=== PATIENT | female | born 1955 | race Caucasian/White ===

== ENCOUNTER 2016-11-10 15:41 | Emergency (ER) | payer SELFPAY ==
[~2016-11-10] VITALS: Ht 167.6 cm; Wt 48.0 kg
[~2016-11-10 15:41] MED LIST: ACET325S8 PO; ALLE25CA5 PO; APIX5TAB PO; ATEN-102 PO; ATOR20TA PO; BIOT5000 PO; CYCL1PAK PO; LATA.005%O OU; MELA5TAB8 PO; METH10TA PO; MOBI15TA PO; MULTCAP2 PO; ROPI0.25 PO; SPIR25TA PO; TOPI25TA2 PO; VITA100T65 PO; VITATAB25 PO; XANA0.5T PO
[2016-11-10 15:45] VITALS: BP 165/65; PULSE 78; RESP 15; TEMP 98.2; O2SAT 98
--- NOTE | 2016-11-10 15:53 | PD ---
Physical Exam Time Seen by Provider: 15:50 Narrative 61yo F sent by MD for INR 8.3. Says MD left it up to her to come in for evaluation. Stopped Warfarin 2 days ago. Requesting carotid US also. 100% blockage on R and 50-70% on L. Patient stable. Patient seen in triage. Awaiting bed placement. Data Data Last Documented VS Vital Signs Date Time Temp Pulse Resp B/P Pulse Ox O2 Delivery O2 Flow Rate FiO2 11/10/16 15:45 98.2 78 15 165/65 98 MDM Supervised Visit with CHARLY: Charleen Fatima Nov 10, 2016 15:53
[2016-11-10 18:29] LABS: AUTOMATED NEUTROPHIL # 3.5 TH/MM3 (1.8-7.7); BASOPHIL % 0.6 % (0.0-2.0); EOSINOPHIL # 0.2 TH/MM3 (0-0.4); EOSINOPHIL % 2.7 % (0.0-4.0); HEMATOCRIT 34.6 % (35.0-46.0); HEMO FLAGS DIFF FINAL; LYMPH % 31.7 % (9.0-44.0); MEAN CELL VOLUME 89.4 FL (80.0-100.0); MEAN CORPUSCULAR HEMOGLOBIN 29.3 PG (27.0-34.0); MEAN CORPUSCULAR HGB CONC 32.8 % (32.0-36.0); MONO % 10.5 % (0.0-8.0); NEUT % 54.5 % (16.0-70.0); PLATELET COUNT 183 TH/MM3 (150-450); RED BLOOD COUNT 3.88 MIL/MM3 (4.00-5.30); RED CELL DISTRIBUTION WIDTH 13.5 % (11.6-17.2); WHITE BLOOD COUNT 6.4 TH/MM3 (4.0-11.0)
[2016-11-10 18:40] LABS: APTT (PATIENT) 45.1 SEC (24.3-30.1); INTERNATIONAL NORMALIZED RATIO 2.9 RATIO; PROTHROMBIN TIME - PATIENT 33.6 SEC (9.8-11.6)
[2016-11-10 18:48] LABS: BICARBONATE 34.4 MEQ/L (21.0-32.0); POTASSIUM 4.1 MEQ/L (3.5-5.1)
--- NOTE | 2016-11-10 19:17 | PD ---
HPI Chief Complaint: Abnormal Results Time Seen by Provider: 19:08 Travel History International Travel<30 days: No Contact w/Intl Traveler<30days: No Traveled to known affect area: No History of Present Illness HPI 61-year-old female that presents to the ED for evaluation of abnormal lab results. Per patient she is currently on Coumadin secondary to atrial fibrillation and 100% clogging of the right carotid. She recently switched to a new doctor about a month ago and she she was switched from Eliquis to Coumadin secondary to not able to afford the medication. She states that she's been doing good with the Coumadin but she is noted that the level was checked about 3 days ago and was high and she was told to withhold her Coumadin. Patient had it rechecked yesterday and went to her appointment with her doctor today and was told that her level actually increase even with withholding the Coumadin for 3 days. Per patient her level is 8.3. Patient comes here with the blood work that shows this. Initially her blood work on November 07 was 7.9. She states that she's been compliant with her diet. Per patient she's been vegetarian. She denies any other medical issues. She states that she does have some bruising on the right and left arm that comes and goes and she does note that she does bruise easier. She denies any pain of any kind. No chest pain or shortness of breath. No bleeding from the rectum or the urine. No trauma or injury. PFSH Past Medical History Hx Anticoagulant Therapy: Yes (Eliquis) Arthritis: Yes Atrial Fibrillation: Yes Anxiety: Yes Cancer: No Cardiovascular Problems: Yes (right carotid stenosis) Chemotherapy: No Cerebrovascular Accident: No Diabetes: No Diminished Hearing: No Genitourinary: No Headaches: Yes Hepatitis: Yes Hypertension: Yes Immune Disorder: No Psychiatric: Yes Reproductive: Yes (HYSTERECTOMY ) Respiratory: No Immunizations Current: Yes ?: Not Menopausal: Yes Past Surgical History Abdominal Surgery: Yes (APPENDECTOMY ) Appendectomy: Yes Section: Yes (x1) Ear Surgery: Yes (left eardrum rebuilt) Gynecologic Surgery: Yes (CYST REMOVED, C SECTION ) Hysterectomy: Yes (2001) Oral Surgery: Yes (TONSILLECTOMY) Tonsillectomy: Yes Social History Alcohol Use: No Tobacco Use: No Substance Use: No Allergies-Medications (Allergen,Severity, Reaction): Coded Allergies: Egg Allergy (Verified Allergy, Severe, 11/10/16) Sulfa (Verified Allergy, Severe, 11/10/16) Reported Meds & Prescriptions Reported Meds & Active Scripts Active Atenolol 50 Mg Tab 50 Mg PO BID Spironolactone 25 Mg Tab 25 Mg PO DAILY Eliquis (Apixaban) 5 Mg Tab 5 Mg PO BID Atorvastatin 20 mg tab (Atorvastatin Calcium) 20 Mg Tab 20 Mg PO HS Reported Multi For Her 50+ (Amino Acids/Minerals/Vitamins) Cap 1 Cap PO DAILY Acetaminophen 325 Mg Tab 500 Mg PO DAILY Allergy Medication (Diphenhydramine HCl) 25 Mg Cap 25 Mg PO HS PRN Biotin 5 000 Tab 1,000 Mcg PO DAILY Vitamin E 100 Unit Tab 100 Unit PO DAILY Melatonin (Melatonin-Pyridoxine) 1 Tab Tab 1 Tab PO HS 10mg tab once a night Vitamin D-1000 (Cholecalciferol) 1,000 Unit Tab 2,000 Unit PO DAILY Xalatan (Latanoprost) 0.005 % Soln 1 Drop OU HS Cyclobenzaprine Hcl (Cyclobenzaprine HCl) 10 Mg Tab 5 Mg PO DAILY Topiramate 25 Mg Tab 25 Mg PO BID Xanax 0.5 mg (Alprazolam) Alprazolam 0.5 mg Tab 1 Tab PO TID PRN Mobic (Meloxicam) 15 Mg Tab 15 Mg PO DAILY Methadone HCl (Methadone Hcl) 10 Mg Tab 10 Mg PO TID Ropinirole HCl (Ropinirole Hydrochloride) 0.25 Mg Tab 0.25 Mg PO TID PRN Review of Systems Except as stated in HPI: all other systems reviewed are Neg Physical Exam Narrative GENERAL: SKIN: Warm and dry. HEAD: Atraumatic. Normocephalic. EYES: Pupils equal and round. No scleral icterus. No injection or drainage. ENT: No nasal bleeding or discharge. Mucous membranes pink and moist. Tongue is midline. No uvula deviation. NECK: Trachea midline. No JVD. CARDIOVASCULAR: Regular rate and rhythm. No murmurs, S3, S4. RESPIRATORY: No accessory muscle use. Clear to auscultation. Breath sounds equal bilaterally. GASTROINTESTINAL: Abdomen soft, non-tender, nondistended. Hepatic and splenic margins not palpable. MUSCULOSKELETAL: Extremities without clubbing, cyanosis, or edema. No obvious deformities. Full range of motion of the upper and lower extremities bilaterally. 2+ pulses bilaterally. Patient does have some bruising on the arms and legs around the fingers especially in the right side. NEUROLOGICAL: Awake and alert. No obvious cranial nerve deficits. Motor grossly within normal limits. Five out of 5 muscle strength in the arms and legs. Normal speech. PSYCHIATRIC: Appropriate mood and affect; insight and judgment normal. Data Data Last Documented VS Vital Signs Date Time Temp Pulse Resp B/P Pulse Ox O2 Delivery O2 Flow Rate FiO2 11/10/16 18:11 Room Air 11/10/16 15:45 98.2 78 15 165/65 98 Orders Complete Blood Count With Diff (11/10/16 17:45) Basic Metabolic Panel (Bmp) (11/10/16 17:45) Prothrombin Time / Inr (Pt) (11/10/16 17:45) Act Partial Throm Time (Ptt) (11/10/16 17:45) Labs Laboratory Tests Test 11/10/16 18:00 White Blood Count 6.4 TH/MM3 Red Blood Count 3.88 MIL/MM3 Hemoglobin 11.4 GM/DL Hematocrit 34.6 % Mean Corpuscular Volume 89.4 FL Mean Corpuscular Hemoglobin 29.3 PG Mean Corpuscular Hemoglobin 32.8 % Concent Red Cell Distribution Width 13.5 % Platelet Count 183 TH/MM3 Mean Platelet Volume 9.6 FL Neutrophils (%) (Auto) 54.5 % Lymphocytes (%) (Auto) 31.7 % Monocytes (%) (Auto) 10.5 % Eosinophils (%) (Auto) 2.7 % Basophils (%) (Auto) 0.6 % Neutrophils # (Auto) 3.5 TH/MM3 Lymphocytes # (Auto) 2.0 TH/MM3 Monocytes # (Auto) 0.7 TH/MM3 Eosinophils # (Auto) 0.2 TH/MM3 Basophils # (Auto) 0.0 TH/MM3 CBC Comment DIFF FINAL Differential Comment Prothrombin Time 33.6 SEC Prothromb Time International 2.9 RATIO Ratio Activated Partial 45.1 SEC Thromboplast Time Sodium Level 139 MEQ/L Potassium Level 4.1 MEQ/L Chloride Level 100 MEQ/L Carbon Dioxide Level 34.4 MEQ/L Anion Gap 5 MEQ/L Blood Urea Nitrogen 22 MG/DL Creatinine 0.96 MG/DL Estimat Glomerular Filtration 59 ML/MIN Rate Random Glucose 55 MG/DL Calcium Level 9.0 MG/DL [facility] Medical Decision Making Medical Screen Exam Complete: Yes Emergency Medical Condition: Yes Medical Record Reviewed: Yes Interpretation(s) CBC & BMP Diagram 11/10/16 18:00 Coags elevated with INR 2.9. Differential Diagnosis coagulopathy versus carotid stenosis versus normal exam Narrative Course 61-year-old female that presents to the ED for evaluation of elevated INR. Patient was properly examined and was found to have signs and symptoms consistent with this. Labs were performed here. Patient's INR here is 2.9. Otherwise exam is unremarkable other than some bruising. Bruising does not appear to be severe. Patient does have some good pulses. No sign of bleeding. I discussed the case with the patient's PCP Dr. Gaming before I had the lab work results and she recommended checking the INR. She gave patient the option of coming here versus staying home and doing some blood work outpatient but apparently patient opted to come here. Basically from what I can tell from the doctor she was concerned about given vitamin K secondary to patient's significant history of stenosis as well as atrial fibrillation that if we fix her coagulopathy she will develop a CVA or worse. So she wanted her to be monitored closely. Case was discussed with my attending Dr. Muñoz. Labs essentially here unremarkable as mentioned before. She went and examined the patient and agrees the patient can be safely discharged with follow-up outpatient. Her Coumadin level here is 2.9. This could likely be error from the previous facility. At this time I recommended the patient with pulse her dose for today and takes her normal dose tomorrow. Close follow with PCP. See ED worsening symptoms. Patient was told this by my attending and patient agrees with plan. Diagnosis Primary Impression: Chronic anticoagulation Patient Instructions: General Instructions Additional Instructions: Called your doctor to let her know that your Coumadin level today performed at [facility] was 2.9. This is within normal range for you. At this time it is believed that there might be an error from the other lab facility. Recommendation at this time is to withhold your dose today and take her regular dose tomorrow. Follow-up with your PCP. See ED if worsening symptoms. Med/Other Pt SpecificInfo: No Change to Meds Disposition: DISCHARGE HOME Condition: Stable Reuben Winter Nov 10, 2016 19:16
== END 2016-11-10 20:24 | disposition home or self-care (01) ==
LOC: NEPC 15:41
DX: R79.1 Abnormal coagulation profile (principal); I48.91 Unspecified atrial fibrillation; I65.21 Occlusion and stenosis of right carotid artery; I10 Essential (primary) hypertension; Z79.01 Long term (current) use of anticoagulants
CPT/HCPCS: 80048; 85025; 85610; 85730; 99283

== ENCOUNTER 2016-11-22 15:54 | Emergency (ER) | payer SELFPAY ==
[~2016-11-22] VITALS: Ht 259.1 cm; Wt 48.0 kg
[2016-11-22 15:56] VITALS: BP 154/67; PULSE 73; RESP 15; TEMP 97.7; O2SAT 99
--- NOTE | 2016-11-22 16:52 | PD ---
HPI Chief Complaint: Neuro Symptoms/ Deficits Time Seen by Provider: 16:49 Travel History International Travel<30 days: No Contact w/Intl Traveler<30days: No Traveled to known affect area: No History of Present Illness HPI Patient is a 61-year-old female presenting to the emergency department evaluation of visual changes, dizziness. Patient states that she has had issues with her vision and loss of visual alejandre for several years however this morning it was worse. She states it has resolved now however she is concerned because she was told by her eye doctor that her vision is fine. She also reports feeling "funny" twice last week where she had a minute episode of feeling dizzy and "odd". The symptoms also resolved on their own. Patient has a history of complete occlusion in the right internal carotid artery, atrial fibrillation, normal tension glaucoma, very artery disease, TIA, lupus, hyperlipidemia. She states that she has not followed up with a band instrument maker after her last admission to [facility] due to insurance issues. She currently denies any chest pain, headache, shortness of breath, visual changes, nausea, vomiting. PFSH Past Medical History Hx Anticoagulant Therapy: Yes Arthritis: Yes Atrial Fibrillation: Yes Anxiety: Yes Cancer: No Cardiovascular Problems: Yes Chemotherapy: No Cerebrovascular Accident: Yes Diabetes: No Diminished Hearing: No Genitourinary: No Headaches: Yes Hepatitis: Yes Hypertension: Yes Immune Disorder: No Psychiatric: Yes Reproductive: Yes (HYSTERECTOMY ) Respiratory: No Immunizations Current: Yes Menopausal: Yes Past Surgical History Abdominal Surgery: Yes (APPENDECTOMY ) Appendectomy: Yes Section: Yes (x1) Ear Surgery: Yes (left eardrum rebuilt) Gynecologic Surgery: Yes (CYST REMOVED, C SECTION ) Hysterectomy: Yes (2000) Oral Surgery: Yes (TONSILLECTOMY) Tonsillectomy: Yes Social History Alcohol Use: No Tobacco Use: No Substance Use: No Allergies-Medications (Allergen,Severity, Reaction): Coded Allergies: Egg Allergy (Verified Allergy, Severe, 11/22/16) Sulfa (Verified Allergy, Severe, 11/22/16) Reported Meds & Prescriptions Reported Meds & Active Scripts Active Review of Systems Except as stated in HPI: all other systems reviewed are Neg Eyes: Positive: Blind Spots HENT: No: Headaches Respiratory: No: Shortness of Breath Gastrointestinal: No: Nausea, Abdominal Pain Neurologic: Positive: Dizziness (not currently) Physical Exam Narrative GENERAL: Well-developed, well-nourished, alert female. Resting comfortably in no acute distress. SKIN: Focused skin assessment warm/dry. HEAD: Atraumatic. Normocephalic. EYES: Pupils equal and round. No scleral icterus. No injection or drainage. ENT: No nasal bleeding or discharge. Mucous membranes pink and moist. NECK: Trachea midline. No JVD. CARDIOVASCULAR: Regular rate and rhythm. No murmur appreciated. RESPIRATORY: No accessory muscle use. Clear to auscultation. Breath sounds equal bilaterally. GASTROINTESTINAL: Abdomen soft, non-tender, nondistended. Hepatic and splenic margins not palpable. MUSCULOSKELETAL: No obvious deformities. No clubbing. No cyanosis. No edema. NEUROLOGICAL: Awake and alert. No obvious cranial nerve deficits. Motor grossly within normal limits. Normal speech. PSYCHIATRIC: Appropriate mood and affect; insight and judgment normal. Data Data Last Documented VS Vital Signs Date Time Temp Pulse Resp B/P Pulse Ox O2 Delivery O2 Flow Rate FiO2 11/22/16 20:15 64 16 121/58 98 Room Air 11/22/16 15:56 97.7 Orders Us Carotid Arteries Comp Bilat (11/22/16 ) Mri Brain W/O Contrast (11/22/16 ) Electrocardiogram (11/22/16 ) Complete Blood Count With Diff (11/22/16 16:47) Comprehensive Metabolic Panel (11/22/16 16:47) Act Partial Throm Time (Ptt) (11/22/16 16:47) Prothrombin Time / Inr (Pt) (11/22/16 16:47) Iv Access Insert/Monitor (11/22/16 16:47) Sodium Chlor 0.9% 1000 Ml Inj (Ns 1000 M (11/22/16 18:30) Labs Laboratory Tests Test 11/22/16 17:20 White Blood Count 6.0 TH/MM3 Red Blood Count 3.89 MIL/MM3 Hemoglobin 11.3 GM/DL Hematocrit 34.9 % Mean Corpuscular Volume 89.6 FL Mean Corpuscular Hemoglobin 29.1 PG Mean Corpuscular Hemoglobin 32.5 % Concent Red Cell Distribution Width 13.5 % Platelet Count 167 TH/MM3 Mean Platelet Volume 9.5 FL Neutrophils (%) (Auto) 48.6 % Lymphocytes (%) (Auto) 34.7 % Monocytes (%) (Auto) 12.1 % Eosinophils (%) (Auto) 4.0 % Basophils (%) (Auto) 0.6 % Neutrophils # (Auto) 2.9 TH/MM3 Lymphocytes # (Auto) 2.1 TH/MM3 Monocytes # (Auto) 0.7 TH/MM3 Eosinophils # (Auto) 0.2 TH/MM3 Basophils # (Auto) 0.0 TH/MM3 CBC Comment DIFF FINAL Differential Comment Prothrombin Time 15.8 SEC Prothromb Time International 1.4 RATIO Ratio Activated Partial 31.5 SEC Thromboplast Time Sodium Level 137 MEQ/L Potassium Level 4.6 MEQ/L Chloride Level 101 MEQ/L Carbon Dioxide Level 33.6 MEQ/L Anion Gap 2 MEQ/L Blood Urea Nitrogen 28 MG/DL Creatinine 1.23 MG/DL Estimat Glomerular Filtration 44 ML/MIN Rate Random Glucose 65 MG/DL Calcium Level 9.2 MG/DL Total Bilirubin 0.3 MG/DL Aspartate Amino Transf 59 U/L (AST/SGOT) Alanine Aminotransferase 49 U/L (ALT/SGPT) Alkaline Phosphatase 88 U/L Total Protein 8.1 GM/DL Albumin 4.5 GM/DL [facility] Medical Decision Making Medical Screen Exam Complete: Yes Emergency Medical Condition: Yes Medical Record Reviewed: Yes Interpretation(s) Laboratory Tests Test 11/22/16 17:20 White Blood Count 6.0 TH/MM3 Red Blood Count 3.89 MIL/MM3 Hemoglobin 11.3 GM/DL Hematocrit 34.9 % Mean Corpuscular Volume 89.6 FL Mean Corpuscular Hemoglobin 29.1 PG Mean Corpuscular Hemoglobin 32.5 % Concent Red Cell Distribution Width 13.5 % Platelet Count 167 TH/MM3 Mean Platelet Volume 9.5 FL Neutrophils (%) (Auto) 48.6 % Lymphocytes (%) (Auto) 34.7 % Monocytes (%) (Auto) 12.1 % Eosinophils (%) (Auto) 4.0 % Basophils (%) (Auto) 0.6 % Neutrophils # (Auto) 2.9 TH/MM3 Lymphocytes # (Auto) 2.1 TH/MM3 Monocytes # (Auto) 0.7 TH/MM3 Eosinophils # (Auto) 0.2 TH/MM3 Basophils # (Auto) 0.0 TH/MM3 CBC Comment DIFF FINAL Differential Comment Prothrombin Time 15.8 SEC Prothromb Time International 1.4 RATIO Ratio Activated Partial 31.5 SEC Thromboplast Time Sodium Level 137 MEQ/L Potassium Level 4.6 MEQ/L Chloride Level 101 MEQ/L Carbon Dioxide Level 33.6 MEQ/L Anion Gap 2 MEQ/L Blood Urea Nitrogen 28 MG/DL Creatinine 1.23 MG/DL Estimat Glomerular Filtration 44 ML/MIN Rate Random Glucose 65 MG/DL Calcium Level 9.2 MG/DL Total Bilirubin 0.3 MG/DL Aspartate Amino Transf 59 U/L (AST/SGOT) Alanine Aminotransferase 49 U/L (ALT/SGPT) Alkaline Phosphatase 88 U/L Total Protein 8.1 GM/DL Albumin 4.5 GM/DL Vital Signs Date Time Temp Pulse Resp B/P Pulse Ox O2 Delivery O2 Flow Rate FiO2 11/22/16 15:56 97.7 73 15 154/67 99 Differential Diagnosis TIA versus CVA versus vertigo versus arrhythmia versus electrolyte abnormality versus Narrative Course Patient is a 61-year-old female presented to the chart for evaluation of visual changes, dizziness. Patient's symptoms appear chronic in nature however patient has a significant past medical history for 100% occlusion of the right internal carotid and 70% in the left. Additionally she has assured nature fibrillation, on Coumadin. Patient is high risk for CVA embolic event. MRI and carotid ultrasound ordered and pending. Labs ordered and pending, patient placed on telemetry monitoring, continuous pulse oximetry, IV access has been initiated. CBC is unremarkable Chemistry with elevated BUN and creatinine 28/1.23, normal saline bolus ordered. INR is 1.4 MRI of the brain is negative for acute abnormality. Ultrasound of the carotid arteries shows occlusion of the right carotid artery, at least moderate stenosis of the left internal carotid artery. Findings were discussed with my attending physician. Will be discharged home with follow-up with cardiovascular surgeon. A mandatory referral will be made for her. Additionally since patient's INR was subtherapeutic at 1.4 she was offered the option of staying in the hospital for monitoring. Patient requested to go home. She was given an additional dose of Coumadin prior to discharge. She was advised to follow-up in the morning with her provider. She verbalized understanding of these instructions. Patient was encouraged to return to emergency department immediately for any new or worsening symptoms. Patient is stable for discharge. Diagnosis Primary Impression: Carotid stenosis Qualified Code: I65.29 - Stenosis of carotid artery, unspecified laterality Additional Impressions: H/O visual field defect Subtherapeutic anticoagulation Referrals: Primary Care Physician 1 day To have Coumadin dosing evaluated Patient Instructions: Carotid Artery Disease (GEN), General Instructions, Warfarin (By mouth) Additional Instructions: Follow-up with your primary doctor to discuss Coumadin dosing tomorrow Return to emergency department immediately for any new or worsening symptoms A mandatory referral has been made to cardiovascular surgeon Take medications as previously prescribed Med/Other Pt SpecificInfo: No Change to Meds Disposition: 01 DISCHARGE HOME Condition: Stable Leana Ratliff November 22, 2016 16:52
--- NOTE | 2016-11-22 16:54 | PD ---
Data Data Last Documented VS Vital Signs Date Time Temp Pulse Resp B/P Pulse Ox O2 Delivery O2 Flow Rate FiO2 11/22/16 15:56 97.7 73 15 154/67 99 Orders Us Carotid Arteries Comp Bilat (11/22/16 ) Mri Brain W/O Contrast (11/22/16 ) Electrocardiogram (11/22/16 ) Complete Blood Count With Diff (11/22/16 16:47) Comprehensive Metabolic Panel (11/22/16 16:47) Act Partial Throm Time (Ptt) (11/22/16 16:47) Prothrombin Time / Inr (Pt) (11/22/16 16:47) Iv Access Insert/Monitor (11/22/16 16:47) MDM Supervised Visit with CHARLY: Yes Narrative Course I, Dr. Murguia, have reviewed the advance practice practioner's documentation and am in agreement, met with the patient face to face, made the diagnosis, and the medical decision making was done by me. *My assessment and Findings: 61-year-old female here with complaint of visual changes and dizziness. 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 Patient states that it's been getting worse recently and the visual field cut is increasing in her visual field. She also is 8 that she feels like there is some visual field loss in the left eye. She saw an eye doctor, does not recall who this was, approximately 3 months ago and her exam was "normal". Patient states that the symptoms have started since that exam. She has history of complete right internal carotid stenosis and 50- 70% left sided stenosis. Patient is anticoagulated for CVA prevention. Her neurologic examination is unremarkable other than inferior visual field loss in the right eye only. I do not appreciate a visual field loss in the left. Will obtain EKG, laboratory workup including coags and MRI and carotid ultrasound to evaluate for a new CVA or TIA as she is certainly at high risk neurologically for recurrent CVA/TIA. If this is negative patient will need outpatient ophthalmology follow-up. Gabriela Murguia MD November 22, 2016 16:54
[2016-11-22 17:19] VITALS: BP 188/79; PULSE 70; RESP 16; O2SAT 100
[2016-11-22 17:35] LABS: AUTOMATED NEUTROPHIL # 2.9 TH/MM3 (1.8-7.7); BASOPHIL % 0.6 % (0.0-2.0); EOSINOPHIL # 0.2 TH/MM3 (0-0.4); HEMATOCRIT 34.9 % (35.0-46.0); HEMO FLAGS DIFF FINAL; LYMPH % 34.7 % (9.0-44.0); LYMPHOCYTE # 2.1 TH/MM3 (1.0-4.8); MEAN CELL VOLUME 89.6 FL (80.0-100.0); MEAN CORPUSCULAR HEMOGLOBIN 29.1 PG (27.0-34.0); MEAN CORPUSCULAR HGB CONC 32.5 % (32.0-36.0); MONO % 12.1 % (0.0-8.0); NEUT % 48.6 % (16.0-70.0); PLATELET COUNT 167 TH/MM3 (150-450); RED BLOOD COUNT 3.89 MIL/MM3 (4.00-5.30); RED CELL DISTRIBUTION WIDTH 13.5 % (11.6-17.2)
[2016-11-22 17:44] LABS: INTERNATIONAL NORMALIZED RATIO 1.4 RATIO; PROTHROMBIN TIME - PATIENT 15.8 SEC (9.8-11.6)
[2016-11-22 17:51] LABS: APTT (PATIENT) 31.5 SEC (24.3-30.1)
[2016-11-22 17:58] LABS: ALKALINE PHOSPHATASE 88 U/L (45-117); TOTAL BILIRUBIN ADULT 0.3 MG/DL (0.2-1.0)
[2016-11-22 18:21] LABS: ALT (GPT) 49 U/L (10-53); ANION GAP 2 MEQ/L (5-15); AST (GOT) 59 U/L (15-37); BICARBONATE 33.6 MEQ/L (21.0-32.0); BLOOD UREA NITROGEN 28 MG/DL (7-18); CHLORIDE 101 MEQ/L (98-107); GLOMERULAR FILTRATION RATE 44 ML/MIN (>89); POTASSIUM 4.6 MEQ/L (3.5-5.1); SODIUM (NA) 137 MEQ/L (136-145)
[2016-11-22] MEDS ORDERED: SODIUM CHLOR 0.9% 1000 ML INJ 1,000 ML IV ONE (18:30)
--- NOTE | 2016-11-22 19:46 | RADRPT ---
EXAM DATE/TIME: 11/22/2016 18:47 [facility] COMPARISON: CT BRAIN W/O CONTRAST, November 28, 2015, 17:03. MRI BRAIN W/O CONTRAST, November 29, 2015, 12:49. INDICATIONS : TIA. MEDICAL HISTORY : Hypertension. Lupus. Vascular disease. A-fib. SURGICAL HISTORY : Hysterectomy. Appendectomy. section. Ear drum. ENCOUNTER: Subsequent ACUITY: 1 day PAIN SCORE: 2/10 LOCATION: cranial TECHNIQUE: Multiplanar, multisequence MRI of the brain was performed without contrast. FINDINGS: CEREBRUM: The ventricles are normal for age. No evidence of midline shift, mass lesion, hemorrhage or acute in farction. No extraaxial fluid collections are seen. The pituitary gland and suprasellar cistern are normal in configuration. There is calcification at the anterior falx. WHITE MATTER: No significant signal abnormalities are seen in the white matter. POSTERIOR FOSSA: The cerebellum and brainstem are intact. The 4th ventricle is midline. The cerebellopontine angle is unremarkable. The cerebellar tonsils are normal in position. DIFFUSION IMAGING: No focal areas of restricted diffusion are seen. No evidence of acute infarction. EXTRACRANIAL: The visualized portions of the orbits and paranasal sinuses are unremarkable. CONCLUSION: No acute disease. Duc Paez MD on November 22, 2016 at 19:40 Board Certified Radiologist. This report was verified electronically.
[2016-11-22 20:15] VITALS: BP 121/58; PULSE 64; RESP 16; O2SAT 98
--- NOTE | 2016-11-22 20:49 | RADRPT ---
EXAM DATE/TIME: 11/22/2016 19:10 [facility] COMPARISON: US CAROTID ARTERIES, November 28, 2015, 16:23. INDICATIONS : Stenosis. History of cerebrovascular accident. MEDICAL HISTORY : Arthritis. Hepatitis. Hypertension. Cerebrovascular accident. Numbness. Afib. Anticoagulant therapy. Anxiety. SURGICAL HISTORY : Tonsillectomy. Appendectomy. Hysterectomy. Left eardrum rebuilt. Colectomy. section. ENCOUNTER: Initial ACUITY: 1 day PAIN SCORE: 0/10 LOCATION: Bilateral neck PEAK SYSTOLIC VELOCITIES (cm/sec): ICA/CCA RATIO: Right: Unable to obtain. Left: 2.3 ICA: Right: Blocked. Left: 227 CCA: Right: 53 Left: 100 ECA: Right: 444 Left: 134 VERTEBRAL: Right: 100 antegrade Left: 101 antegrade Elevated flow velocities and ICA/CCA ratios have been found to correlate with increased degrees of vessel stenosis, calculated as percentage of diameter relative to a normal segment of distal ICA/CCA FINDINGS: RIGHT CAROTID: There is prominent plaque at the carotid bulb with flow not seen in the right internal carotid artery . LEFT CAROTID: There is plaque at the carotid bulb region with an elevated peak systolic velocity at the internal ca rotid artery. The ICA/CCA ratio is elevated on the left. VERTEBRAL ARTERIES: Antegrade flow is seen in both vertebral arteries. MISCELLANEOUS: None. CONCLUSION: 1. Occlusion of the right internal carotid artery. 2. At least moderate stenosis of the left internal carotid artery. Duc Paez MD on November 22, 2016 at 20:44 Board Certified Radiologist. This report was verified electronically.
[2016-11-22] MEDS ORDERED: WARFARIN SOD 3 MG TAB PO ONE (21:15)
--- NOTE | 2016-11-23 08:52 | EKG ---
Date Performed: 11/22/2016 Time Performed: 17:14:25 PTAGE: 61 years EKG: Sinus rhythm LEFT BUNDLE BRANCH BLOCK ABNORMAL ECG PREVIOUS TRACING : 11/28/2015 15.58 DOCTOR: Vivek Obrien Interpretating Date/Time 11/23/2016 08:49:49
== END 2016-11-22 22:19 | disposition home or self-care (01) ==
LOC: NEPD 15:54
DX: I65.29 Occlusion and stenosis of unspecified carotid artery (principal); H53.40 Unspecified visual field defects; R79.1 Abnormal coagulation profile; I44.7 Left bundle-branch block, unspecified; I48.91 Unspecified atrial fibrillation; Z86.73 Personal history of transient ischemic attack (TIA), and cerebral infarction without residual deficits; I10 Essential (primary) hypertension
CPT/HCPCS: 70551; 80053; 85025; 85610; 85730; 93005; 93880; 99284; J7030